=== PATIENT | female | born 1990 | race Caucasian/White ===

== ENCOUNTER → 2020-01-01 | Outpatient (CLI) | payer BC ==
--- NOTE | 2020-01-01 09:31 | XR ---
EXAMINATION TYPE: XR shoulder complete RT DATE OF EXAM: 01/01/2020 CLINICAL HISTORY: pain TECHNIQUE: Three views of the right shoulder are obtained. COMPARISON: None FINDINGS: There is no acute fracture/dislocation evident. The acromioclavicular and glenohumeral tan int spaces appear within normal limits. The visualized ribs are intact and unremarkable. IMPRESSION: 1. There is no acute fracture or dislocation. ICD 10 NO FRACTURE, INITIAL EVALUATION
== END | disposition home or self-care (01) ==
LOC: RADXRMAIN 08:52
PROVIDERS: ATTEND Internal Medicine
DX: M75.51 Bursitis of right shoulder (principal)

== ENCOUNTER → 2020-08-01 | Outpatient (CLI) | payer BC ==
--- NOTE | 2020-08-02 05:13 | FL ---
EXAMINATION TYPE: FL hysterosalpingography DATE OF EXAM: 08/01/2020 CLINICAL HISTORY: Primary infertility. TECHNIQUE: Fluoroscopic assisted hysterosalpingogram. Fluoroscopic guidance was provided during hyste rosalpingogram procedure performed by Dr. Arechiga. A total of 1 minute 23 seconds of fluoroscopic time was utilized during the procedure and 9 spot images were acquired.. Isovue 200 and Isovue 300 were u sed. COMPARISON: None. FINDINGS: Procedure was explained to patient. Benefits, alternatives, and risks were discussed. Info rmed consent was obtained. 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 Speculum was inserted using sterile technique. The cervical os was cleansed with Betadine. Catheter i s inserted. Balloon is inflated. Initial attempts are unsuccessful and filling endometrial canal with leak through cervix. After repositioning and reinflation there is successful filling of endometrium with subsequent filling of bilateral fallopian tubes and free spillage documented bilaterally. Endome trial configuration within normal limits. At this point the balloon is deflated and catheter was with drawn. Patient tolerated procedure well without any immediate complication. Patient was kept in the radiolog y Department for short stay after the procedure and then discharged home in stable and satisfactory c ondition. IMPRESSION: Successful fluoroscopic-assisted hysterosalpingogram with documentation of bilateral tuba l patency.
== END | disposition home or self-care (01) ==
LOC: RADUSWWP 13:16
PROVIDERS: ATTEND Obstetrics & Gynecology Obstetrics
DX: N97.9 Female infertility, unspecified (principal)
CPT/HCPCS: 58340; 74740; Q9966; Q9967